=== PATIENT | male | born 1970 | race Two or more races ===

== ENCOUNTER 2018-11-15 14:11 | Emergency (ER) | payer MEDICAID ==
[~2018-11-15] VITALS: Ht 167.6 cm; Wt 88.5 kg
[2018-11-15 14:22] VITALS: BP 131/94
[2018-11-15] MEDS ORDERED: LIDOCAINE 1%-EPI 1:100,000 20 ML VIAL ONE (14:27)
[2018-11-15] MEDS ORDERED: ACETAMINOPHEN 325 MG TABLET PO ONE (14:30)
[2018-11-15] MEDS ORDERED: LIDOCAINE 1%-EPI 1:100,000 50 ML VIAL IJ ONE (14:30)
[2018-11-15] MEDS ORDERED: BACI/NEOM/POLY B OINT PKT 1 UDPKT PACKET TP ONE (15:00)
[2018-11-15] MEDS ORDERED: ACETAMINOPHEN 325 MG TABLET ONE (15:01)
== END 2018-11-15 15:08 | disposition home or self-care (01) ==
LOC: ER 14:16
DX: S71.111A Laceration without foreign body, right thigh, initial encounter (principal); Z60.2 Problems related to living alone; W26.8XXA Contact with other sharp object(s), not elsewhere classified, initial encounter; Y93.89 Activity, other specified; Y92.89 Other specified places as the place of occurrence of the external cause; Y99.8 Other external cause status
CPT/HCPCS: 12002; 99283; A6402; J3490 ×2

== ENCOUNTER 2018-11-26 18:25 | Emergency (ER) | payer MEDICAID ==
[~2018-11-26] VITALS: Ht 170.2 cm; Wt 89.8 kg
[2018-11-26 18:35] VITALS: BP 124/73
--- NOTE | 2018-11-26 18:49 | NUR ---
Patient discharged to home in stable condition. Written and verbal after care instructions given. Patient verbalizes understanding of instruction.
== END 2018-11-26 18:50 | disposition home or self-care (01) ==
LOC: ER 18:28
DX: S71.111D Laceration without foreign body, right thigh, subsequent encounter (principal); Z60.2 Problems related to living alone; X58.XXXD Exposure to other specified factors, subsequent encounter
CPT/HCPCS: Z7502

== ENCOUNTER 2019-04-16 20:30 | Emergency (ER) | payer MEDICAID ==
[~2019-04-16] VITALS: Ht 170.2 cm; Wt 88.9 kg
[2019-04-16 21:11] VITALS: BP 144/76
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
--- NOTE | 2019-04-16 22:50 | NUR ---
AT BEDSIDE SUTURING PT
[2019-04-16] MEDS ORDERED: IBUPROFEN 600 MG TABLET PO ONE ×2 (23:21→23:30)
--- NOTE | 2019-04-16 23:26 | NUR ---
Patient discharged to home in stable condition. Written and verbal after care instructions given. Patient verbalizes understanding of instruction.
== END 2019-04-16 23:29 | disposition home or self-care (01) ==
LOC: ER 20:32
DX: S61.211A Laceration without foreign body of left index finger without damage to nail, initial encounter (principal); Z60.2 Problems related to living alone; W26.0XXA Contact with knife, initial encounter; Y93.89 Activity, other specified; Y92.89 Other specified places as the place of occurrence of the external cause; Y99.8 Other external cause status

== ENCOUNTER 2019-10-14 17:20 | Emergency (ER) | payer MEDICAID ==
[~2019-10-14] VITALS: Ht 170.2 cm; Wt 86.2 kg
[2019-10-14 17:25] VITALS: BP 146/93
== END 2019-10-14 19:09 | disposition home or self-care (01) ==
LOC: ER 17:20
DX: J20.9 Acute bronchitis, unspecified (principal); J32.9 Chronic sinusitis, unspecified; Z60.2 Problems related to living alone
CPT/HCPCS: 71045-TC

== ENCOUNTER 2022-01-23 09:45 | Emergency (ER) | payer MEDICAID ==
[~2022-01-23] VITALS: Ht 170.2 cm; Wt 66.7 kg
--- NOTE | 2022-01-23 09:57 | NUR ---
To ER bed 3, c/o "Pain on my Right LE/Calf xcouple days today worse. Swollen", aaox3, breathing even and non labored, awaiting md orders
[2022-01-23] MEDS ORDERED: CYCLOBENZAPRINE 10 MG TABLET ONE (10:12)
[2022-01-23] MEDS ORDERED: KETOROLAC TROMETHAMINE INJ 30 MG/ML VIAL ONE (10:12)
--- NOTE | 2022-01-23 10:19 | NUR ---
US TECH AT BEDSIDE FOR ULTRASOUND
[2022-01-23] MEDS ORDERED: CYCLOBENZAPRINE 10 MG TABLET PO ONE (10:30)
[2022-01-23] MEDS ORDERED: KETOROLAC TROMETHAMINE INJ 30 MG/ML VIAL IM ONE (10:30)
[2022-01-23] MEDS ORDERED: CYCL5TAB PO (11:42)
[2022-01-23] MEDS ORDERED: IBUP-1957 PO (11:42)
--- NOTE | 2022-01-23 11:53 | NUR ---
Patient discharged to home in stable condition. Written and verbal after care instructions given. Patient verbalizes understanding of instruction.
[2022-01-23 11:54] VITALS: BP 134/84
== END 2022-01-23 11:54 | disposition home or self-care (01) ==
LOC: ER 09:56
DX: I82.811 Embolism and thrombosis of superficial veins of right lower extremity (principal); I82.90 Acute embolism and thrombosis of unspecified vein; Z60.2 Problems related to living alone; Z79.899 Other long term (current) drug therapy
CPT/HCPCS: 93971; 96372; 99284; J1885

== ENCOUNTER 2023-07-05 00:31 | Emergency (ER) | payer MEDICAID, OTHER ==
[~2023-07-05] VITALS: Ht 170.2 cm; Wt 89.8 kg
[~2023-07-05 00:31] MED LIST: CYCL5TAB PO; IBUP-1957 PO
[2023-07-05] MEDS ORDERED: IV NS 0.9% 1,000 ML BAG IV ONE (01:00)
[2023-07-05] MEDS ORDERED: ONDANSETRON HCL/PF 4 MG/2 ML VIAL IVP ONE (01:00)
[2023-07-05] MEDS ORDERED: DICYCLOMINE HCL INJ 20 MG/2 ML AMPUL IM ONE ×2 (01:00→01:10)
[2023-07-05] MEDS ORDERED: ONDANSETRON HCL/PF 4 MG/2 ML VIAL ONE (01:10)
[2023-07-05 01:18] LABS: HEMATOCRIT 45 % (39-51); RED CELL DISTRIBUTION WIDTH 13.2 % (11.5-15.0)
[2023-07-05 01:20] VITALS: BP 131/86; TEMP 98.5; O2SAT 99
[2023-07-05 01:22] LABS: BASOPHILS % (AUTO) 0.1 % (0.0-2.0); EOSINOPHILS # (AUTO) 0.5 K/uL (0.0-0.7); EOSINOPHILS % (AUTO) 3.3 % (0.0-6.0); HEMOGLOBIN 15.5 g/dL (13.5-17.5); LYMPHOCYTES # (AUTO) 0.8 K/uL (0.8-4.8); LYMPHOCYTES % (AUTO) 5.2 % (20.0-44.0); MEAN CORPUSCULAR HEMOGLOBIN 30 PG (26.0-33.0); MEAN CORPUSCULAR HGB CONC 34 g/dl (31.0-36.0); MEAN CORPUSCULAR VOLUME 88 fL (80-96); MONOCYTES # (AUTO) 0.6 K/uL (0.1-1.30); MONOCYTES % (AUTO) 3.5 % (2.0-12.0); NEUTROPHILS % (AUTO) 87.9 % (43.0-81.0); PLATELET COUNT (AUTO) 277 K/uL (150-450); RED BLOOD CELL COUNT(AUTO) 5.14 MIL/uL (4.5-6.0)
[2023-07-05 01:30] LABS: INR 0.99 (0.91-1.10); PARTIAL THROMBOPLASTIN TIME 24.8 SEC (24.3-34.3); PROTHROMBIN TIME 10.5 SECS (9.2-11.1)
[2023-07-05 01:33] LABS: ALBUMIN 4.1 g/dL (3.4-5.0); BILIRUBIN,DIRECT 0.1 mg/dL (0.0-0.2); BILIRUBIN,TOTAL 0.6 mg/dL (0.2-1.0); CALCIUM, SERUM 8.8 mg/dL (8.5-10.1); CREATININE 0.9 mg/dL (0.6-1.3); POTASSIUM 3.8 mmol/L (3.5-5.1); TOTAL PROTEIN, SERUM 8.1 g/dL (6.4-8.2)
[2023-07-05 01:42] LABS: APPEARANCE,URINE CLEAR (CLEAR); BILIRUBIN,URINE NEGATIVE (NEGATIVE); BLOOD, URINE NEGATIVE Ery/uL (NEGATIVE); COLOR,URINE YELLOW (YELLOW); KETONES,URINE TRACE mg/dL (NEGATIVE); LEUKOCYTE ESTERASE ,URINE NEGATIVE (NEGATIVE); NITRITE, URINE NEGATIVE (NEGATIVE); PH,URINE 5.5 (5.0-8.0); PROTEIN,URINE TRACE mg/dl (NEGATIVE); UGLUCOSE NEGATIVE (NEGATIVE); UROBILINOGEN,URINE 0.2 EU/dL (0.2)
[2023-07-05 02:20] LABS: ADD URINE CULTURE NO; BACTERIA,URINE None seen /HPF (None Seen); MUCUS,URINE Few /LPF (None Seen); RBC,URINE NONE SEEN /HPF (0-2); SQUAMOUS EPITHELIAL CELL,UR None Seen /HPF (None Seen); WBC,URINE NONE SEEN /HPF (0-3)
[2023-07-05] MEDS ORDERED: DICY10CA37 PO (03:01)
[2023-07-05] MEDS ORDERED: ONDA4TAB5 PO (03:01)
== END 2023-07-05 03:09 | disposition home or self-care (01) ==
LOC: ER 00:39
DX: A08.4 Viral intestinal infection, unspecified (principal); R10.84 Generalized abdominal pain; R11.2 Nausea with vomiting, unspecified; Z60.2 Problems related to living alone
CPT/HCPCS: 99285; 74176; 96374; 96361; 85025; 80048; 83690; 80076; 81001; 36415; 85730; 96372; J2405; J7030; J0500

== ENCOUNTER 2023-08-26 05:49 | Emergency (ER) | payer OTHER ==
[~2023-08-26] VITALS: Ht 170.2 cm; Wt 88.5 kg
[~2023-08-26 05:49] MED LIST changes: +DICY10CA37 PO; +ONDA4TAB5 PO
[2023-08-26] MEDS ORDERED: ONDANSETRON HCL/PF 4 MG/2 ML VIAL ONE (06:14)
[2023-08-26] MEDS ORDERED: IV NS 0.9% 1,000 ML BAG IV ONE (06:30)
[2023-08-26] MEDS ORDERED: ONDANSETRON HCL/PF 4 MG/2 ML VIAL IVP ONE (06:30)
[2023-08-26 06:33] LABS: BASOPHILS % (AUTO) 0.1 % (0.0-2.0); EOSINOPHILS # (AUTO) 0.3 K/uL (0.0-0.7); EOSINOPHILS % (AUTO) 2.9 % (0.0-6.0); HEMATOCRIT 46 % (39-51); HEMOGLOBIN 15.6 g/dL (13.5-17.5); LYMPHOCYTES # (AUTO) 0.7 K/uL (0.8-4.8); LYMPHOCYTES % (AUTO) 5.6 % (20.0-44.0); MEAN CORPUSCULAR HEMOGLOBIN 30 PG (26.0-33.0); MEAN CORPUSCULAR HGB CONC 34 g/dl (31.0-36.0); MEAN CORPUSCULAR VOLUME 88 fL (80-96); MONOCYTES # (AUTO) 0.2 K/uL (0.1-1.30); MONOCYTES % (AUTO) 1.9 % (2.0-12.0); NEUTROPHILS # (AUTO) 10.9 K/uL (1.8-8.9); NEUTROPHILS % (AUTO) 89.5 % (43.0-81.0); PLATELET COUNT (AUTO) 287 K/uL (150-450); RED BLOOD CELL COUNT(AUTO) 5.18 MIL/uL (4.5-6.0); RED CELL DISTRIBUTION WIDTH 13.3 % (11.5-15.0); WHITE BLOOD COUNT (AUTO) 12.1 K/uL (4.3-11.0)
[2023-08-26 06:50] LABS: CALCIUM, SERUM 9.2 mg/dL (8.5-10.1); CREATININE 0.8 mg/dL (0.6-1.3); POTASSIUM 3.9 mmol/L (3.5-5.1)
[2023-08-26 06:55] LABS: ALBUMIN 3.9 g/dL (3.4-5.0); BILIRUBIN,DIRECT 0.1 mg/dL (0.0-0.2); BILIRUBIN,TOTAL 0.6 mg/dL (0.2-1.0); TOTAL PROTEIN, SERUM 8.6 g/dL (6.4-8.2)
[2023-08-26 07:41] LABS: APPEARANCE,URINE CLEAR (CLEAR); BILIRUBIN,URINE NEGATIVE (NEGATIVE); BLOOD, URINE NEGATIVE Ery/uL (NEGATIVE); COLOR,URINE YELLOW (YELLOW); KETONES,URINE NEGATIVE (NEGATIVE); LEUKOCYTE ESTERASE ,URINE NEGATIVE (NEGATIVE); NITRITE, URINE NEGATIVE (NEGATIVE); PH,URINE 5.5 (5.0-8.0); PROTEIN,URINE TRACE mg/dl (NEGATIVE); UGLUCOSE NEGATIVE (NEGATIVE); UROBILINOGEN,URINE 0.2 EU/dL (0.2)
[2023-08-26 08:05] LABS: ADD URINE CULTURE NO; BACTERIA,URINE Few /HPF (None Seen); MUCUS,URINE Few /LPF (None Seen); RBC,URINE 0-2 /HPF (0-2); SQUAMOUS EPITHELIAL CELL,UR Few /HPF (None Seen); WBC,URINE 0-2 /HPF (0-3)
[2023-08-26] MEDS ORDERED: ONDA4TAB5 PO (08:45)
[2023-08-26 08:53] VITALS: BP 128/78; TEMP 98.4; O2SAT 98
== END 2023-08-26 08:53 | disposition home or self-care (01) ==
LOC: ER 05:54
DX: R10.9 Unspecified abdominal pain (principal); R11.2 Nausea with vomiting, unspecified; R19.7 Diarrhea, unspecified; Z79.899 Other long term (current) drug therapy; Z60.2 Problems related to living alone
CPT/HCPCS: 99283; 96374; 96361; 85025; 80048; 83690; 80076; 81001; 36415; J2405; J7030

== ENCOUNTER 2024-08-12 17:05 | Emergency (ER) | payer OTHER ==
[~2024-08-12] VITALS: Ht 170.2 cm; Wt 88.0 kg
[2024-08-12 17:54] LABS: APPEARANCE,URINE Clear (CLEAR); BILIRUBIN,URINE Negative (NEGATIVE); BLOOD, URINE Negative Ery/uL (NEGATIVE); COLOR,URINE YELLOW (YELLOW); KETONES,URINE 80 mg/dL (NEGATIVE); LEUKOCYTE ESTERASE ,URINE Negative (NEGATIVE); NITRITE, URINE Negative (NEGATIVE); PROTEIN,URINE Negative (NEGATIVE); UGLUCOSE >=1000 mg/dL (NEGATIVE); UROBILINOGEN,URINE 0.2 EU/dL (0.2)
[2024-08-12 17:55] LABS: ADD URINE CULTURE NO; BACTERIA,URINE Rare /HPF (None Seen); SQUAMOUS EPITHELIAL CELL,UR Rare /HPF (None Seen); WBC,URINE 0-2 /HPF (0-3)
[2024-08-12 18:41] LABS: BASOPHILS # (AUTO) 0.1 K/uL (0.0-0.2); BASOPHILS % (AUTO) 1.1 % (0.0-2.0); EOSINOPHILS # (AUTO) 0.4 K/uL (0.0-0.7); EOSINOPHILS % (AUTO) 4.5 % (0.0-6.0); HEMATOCRIT 42 % (39-51); HEMOGLOBIN 14.7 g/dL (13.5-17.5); LYMPHOCYTES # (AUTO) 2.1 K/uL (0.8-4.8); LYMPHOCYTES % (AUTO) 23.2 % (20.0-44.0); MEAN CORPUSCULAR HEMOGLOBIN 31 PG (26.0-33.0); MEAN CORPUSCULAR HGB CONC 35 g/dl (31.0-36.0); MEAN CORPUSCULAR VOLUME 88 fL (80-96); MONOCYTES # (AUTO) 0.5 K/uL (0.1-1.30); MONOCYTES % (AUTO) 5.1 % (2.0-12.0); NEUTROPHILS # (AUTO) 5.9 K/uL (1.8-8.9); NEUTROPHILS % (AUTO) 66.1 % (43.0-81.0); PLATELET COUNT (AUTO) 262 K/uL (150-450); RED BLOOD CELL COUNT(AUTO) 4.77 MIL/uL (4.5-6.0); RED CELL DISTRIBUTION WIDTH 13.1 % (11.5-15.0)
[2024-08-12 18:41] LABS: SITE, VBG VBG - N/A; VBG BASE EXCESS -3.1 mmol/L (-2.0-3.0); VBG HCO3 21.8 mmol/L (22.0-29.0); VBG MetHb 0.3 % (0.5-1.5); VBG O2Hb 73.1 % (0-79); VBG OXYGEN SATURATION 73.3 % (60.0-85.0); VBG PCO2 38.9 mmHg (38.0-54.0); VBG PH 7.367 (7.320-7.430); VBG PO2 39.1 mmHg (23.0-48.0); VBG TOTAL HEMOGLOBIN 15.2 G/dL (13.5-17.5)
[2024-08-12] MEDS: IV NS 0.9% 1,000 ML BAG IV ONE (18:50)
[2024-08-12 18:51] LABS: CALCIUM, SERUM 9.9 mg/dL (8.5-10.1); CREATININE 0.8 mg/dL (0.6-1.3); POTASSIUM 4.2 mmol/L (3.5-5.1)
[2024-08-12] MEDS ORDERED: METF-440 PO (19:41)
[2024-08-12] MEDS ORDERED: INSULIN REGULAR, HUMAN 100 UNIT/ML 10 ML VIAL SQ ONE (20:00)
[2024-08-12 20:08] VITALS: BP 150/95; TEMP 98.2; O2SAT 98
== END 2024-08-12 20:08 | disposition home or self-care (01) ==
LOC: ER 17:07
DX: E11.9 Type 2 diabetes mellitus without complications (principal); R35.89 Other polyuria; Z79.84 Long term (current) use of oral hypoglycemic drugs
CPT/HCPCS: 99283; 96360; 82803 ×2; 85025; 80048; 82010; 81001; 36415; 82962; J7030

== ENCOUNTER 2024-08-23 18:04 | Emergency (ER) | payer OTHER ==
[~2024-08-23] VITALS: Ht 170.2 cm; Wt 90.7 kg
[~2024-08-23 18:04] MED LIST changes: -CYCL5TAB PO; -DICY10CA37 PO; -IBUP-1957 PO; +METF-440 PO; -ONDA4TAB5 PO
[2024-08-23 18:30] VITALS: BP 129/83; TEMP 98; O2SAT 98
[2024-08-23] MEDS ORDERED: HYDROCODONE/APAP 5/325MG TABLET ONE (19:40)
[2024-08-23] MEDS: HYDROCODONE/APAP 5/325MG TABLET PO ONE (19:41)
[2024-08-23] MEDS ORDERED: ACET325C7 PO (19:52)
[2024-08-23] MEDS ORDERED: IBUP-1953 PO (19:52)
== END 2024-08-23 20:08 | disposition home or self-care (01) ==
LOC: ER 18:05
DX: R51.9 Headache, unspecified (principal); E11.9 Type 2 diabetes mellitus without complications; F17.200 Nicotine dependence, unspecified, uncomplicated; Z79.84 Long term (current) use of oral hypoglycemic drugs; Z60.2 Problems related to living alone
CPT/HCPCS: 70450-TC

== ENCOUNTER 2024-09-05 05:39 | Emergency (ER) | payer OTHER ==
[~2024-09-05] VITALS: Ht 170.2 cm; Wt 82.6 kg
[~2024-09-05 05:39] MED LIST changes: +ACET325C7 PO; +IBUP-1953 PO
[2024-09-05] MEDS ORDERED: CLOT30SO2 TP (06:29)
[2024-09-05 06:44] VITALS: BP 139/102; TEMP 98.8; O2SAT 100
[2024-09-06 05:07] LABS: RAPID PLASMA REAGIN QUAL. Non Reactive (Non Reactive)
[2024-09-06 22:05] LABS: CHLAMYDIA TRACHOMATIS NAA Negative (Negative); NEISSERIA GONORRHOEAE NAA Negative (Negative)
== END 2024-09-05 06:44 | disposition home or self-care (01) ==
LOC: ER 05:39
DX: N48.1 Balanitis (principal); Z79.84 Long term (current) use of oral hypoglycemic drugs
CPT/HCPCS: 36415; 86592; 86593; 87491; 87591

== ENCOUNTER 2025-07-14 20:35 | Emergency (ER) | payer SELFPAY ==
[~2025-07-14 20:35] MED LIST changes: +CLOT30SO2 TP
== END 2025-07-14 22:43 | disposition left against medical advice (07) ==
LOC: ER 20:41
DX: K62.89 Other specified diseases of anus and rectum (principal); Z53.21 Procedure and treatment not carried out due to patient leaving prior to being seen by health care provider